=== PATIENT | male | born 1995 | race Caucasian/White ===

== ENCOUNTER 2016-06-16 17:52 | Emergency (ER) | payer OTHER ==
[2016-06-16] MEDS ORDERED: ONDANSETRON ODT 4 MG TAB ONE (18:28)
[2016-06-16] MEDS ORDERED: TDaP 0.5 ML VIAL IM.VACC ONE (18:28)
[2016-06-16] MEDS ORDERED: MORPHINE 4 MG/ML SYR ONE (18:28)
[2016-06-16] MEDS ORDERED: BUPIVACAINE 0.75% PF 10ML ONE (18:33)
[2016-06-16] MEDS ORDERED: LIDOCAINE 1% MDV 20 ML ONE (18:51)
== END 2016-06-16 19:05 | disposition other institution (70) ==
LOC: FASTR 17:52
DX: S68.021A Partial traumatic metacarpophalangeal amputation of right thumb, initial encounter (principal); W31.9XXA Contact with unspecified machinery, initial encounter; Y92.63 Factory as the place of occurrence of the external cause
CPT/HCPCS: 90471; 96372